=== PATIENT | female | born 1995 | race Caucasian/White ===

== ENCOUNTER 2017-02-20 10:54 | Inpatient (IN) | payer BC ==
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
[2017-02-20] MEDS ORDERED: Lidocaine 1% 50 ML MDV INJECT ONE (19:21)
[2017-02-20] MEDS ORDERED: Sodium Chloride 0.9% 10 ML Syringe FLUSH PRN (19:21)
[2017-02-20] MEDS ORDERED: Nalbuphine 20 MG/1 ML Amp IVPUSH PRN (19:21)
[2017-02-20] MEDS ORDERED: fentaNYL 100 MCG/2 ML SDV EPIDUR PRN (19:26)
[2017-02-20] MEDS ORDERED: Ondansetron 4 MG/2 ML SDV IVPUSH PRN (19:26)
[2017-02-20] MEDS ORDERED: ePHEDrine 50 MG/ML SDV IVPUSH PRN (19:26)
[2017-02-20] MEDS ORDERED: Bupivacaine/fentaNYL/NS 100 ML Bag EPIDUR SCH (19:30)
[2017-02-20] MEDS ORDERED: Oxytocin/Lactated Ringers 10 UNIT/1,000 ML BAG IV SCH ×2 (19:30→22:45)
--- NOTE | 2017-02-20 19:53 | PCM.PREANE ---
Preanesthetic Assessment - Anesthesia/Transfusion/Family Hx Anesthesia History: Prior Anesthesia Reaction Type of Anesthesia Reaction: Excessive Nausea/Vomiting Family History of Anesthesia Reaction: No Transfusion History: No Prior Transfusion(s) Intubation History: Unknown - Review of Systems General: No Symptoms (runny nose) Pulmonary: No Symptoms Cardiovascular: No Symptoms (PIH noted without treatment warranted per patient.) Gastrointestinal: No symptoms Neurological: No Symptoms Other: Reports: Easy Bruising - Physical Assessment NPO Status Date: 02/20/17 NPO Status Time: 16:30 Pulse: 91 O2 Sat by Pulse Oximetry: 99 Respiratory Rate: 20 Blood Pressure: 133/87 Temperature: 37.4 C Height: 1.6 m Weight: 89.868 kg ASA Class: 2 Mental Status: Alert & Oriented x3 Airway Class: Mallampati = 2 Dentition: Reports: Normal Dentition, Caries Thyro-Mental Finger Breadths: 3 Mouth Opening Finger Breadths: 3 ROM/Head Extension: Full Lungs: Clear to auscultation, Normal respiratory effort Cardiovascular: Regular Rate, Regular Rhythm - Allergies Allergies/Adverse Reactions: Allergies Allergy/AdvReac Type Severity Reaction Status Date / Time No Known Allergies Allergy Verified 02/20/17 19:30 - Anesthesia Plan Pre-Op Medication Ordered: None (/) - Acknowledgements Anesthesia Type Planned: Epidural Pt an Appropriate Candidate for the Planned Anesthesia: Yes Alternatives and Risks of Anesthesia Discussed w Pt/Guardian: Yes Pt/Guardian Understands and Agrees with Anesthesia Plan: Yes PreAnesthesia Questionnaire Other Musculoskeletal History: States has low back pain prior to epdural and had chronic low back pain after her first epidural. No radiation down legs. - Past Surgical History HEENT Surgical History: Reports: Tonsillectomy - SUBSTANCE USE Smoking Status *Q: Never Smoker Second Hand Smoke Exposure: Yes Recreational Drug Use History: No - HOME MEDS Home Medications: Home Meds Acetaminophen with Codeine [Tylenol with Codeine #3 Tablet] 1 each PO ASDIRECTED PRN 06/12/16 [History] - CURRENT (IN HOUSE) MEDS Current Meds: Current Medications Ephedrine Sulfate (Ephedrine Sulfate) 5 mg IVPUSH ASDIRECTED PRN PRN Reason: Hypotension Fentanyl (Sublimaze) 100 mcg EPIDUR Q3H PRN PRN Reason: Pain Fentanyl/Bupivacaine HCl (Fentanyl/Bupivacaine/Ns 2 Mcg-0.125% 100 Ml) 100 ml EPIDUR ASDIRECTED CHUCK Lactated Ringer's (Ringers, Lactated) 1,000 mls @ 100 mls/hr IV ASDIRECTED CHUCK Oxytocin/Lactated Ringer's (Pitocin In Lr 10 Units/1,000 Ml) 10 unit in 1,000 mls @ 500 mls/hr IV TITRATE CHUCK PRN Reason: Protocol Nalbuphine HCl (Nubain) 10 mg IVPUSH Q2H PRN PRN Reason: Pain (moderate 4-6) Ondansetron HCl (Zofran) 4 mg IVPUSH ONETIME PRN PRN Reason: Nausea/Vomiting Sodium Chloride (Saline Flush) 10 ml FLUSH ASDIRECTED PRN PRN Reason: Keep Vein Open Discontinued Medications Lidocaine HCl (Xylocaine 1%) 50 ml INJECT ONETIME ONE Stop: 02/20/17 19:22
[2017-02-20] MEDS ORDERED: Diphtheria,Pertussis(Acell),Tetanus Vaccine 0.5 ML SDV inactive IM ONE (20:42)
[2017-02-20] MEDS: Lactated Ringers 1,000 ML IV SCH (22:50)
[2017-02-21] MEDS: Lactated Ringers 1,000 ML IV SCH (01:19)
--- NOTE | 2017-02-21 03:30 | PCM.SN ---
- Free Text/Narrative Note: Ligia is a 21-year-old G5 now P 4-0-1-4 female who presented to L& D in early labor with contractions 6-8 minutes apart. She slowly progressed to complete with the help of some IV pitocin to augment spacing of contractions. At 0302 hours, she delivered a 3630g (8lbs, 0oz), 20 in long, male in STERLING position over an intact perineum. 3-vessel cord was noted. Cord blood obtained. Apgars were 9 and 9 at 1 and 5 minutes respectively. Baby's name is "Salo Robertson". IV Pitocin was again started to help with uterine contraction. Placenta was then delivered at 0311 hours in [place] presentation. It was examined and found to be intact. EBL 100cc. Mom and baby doing well.
[2017-02-21] MEDS ORDERED: Hydrocortisone 1% Crm 30 GM Tube TOP PRN (03:35)
[2017-02-21] MEDS ORDERED: Acetaminophen 325 MG Tab PO PRN (03:59)
[2017-02-21] MEDS ORDERED: Witch Hazel Medicated Pads 100/Jar TOP PRN (03:59)
[2017-02-21] MEDS ORDERED: Benzocaine/Menthol 20%-0.5% Spray 56 GM Canister TOP PRN (03:59)
[2017-02-21] MEDS ORDERED: Lanolin 100% Cream 7 GM Tube TOP PRN (03:59)
[2017-02-21] MEDS: Docusate Sodium 100 MG Cap PO PRN ×2 (04:51→20:05)
[2017-02-21] MEDS: Ibuprofen 600 MG Tab PO PRN ×4 (04:51→20:04)
--- NOTE | 2017-02-21 08:05 | PCM48HPAN ---
Post Anesthesia Note - EVALUATION WITHIN 48HRS OF ANESTHETIC Vital Signs in Normal Range: Yes Patient Participated in Evaluation: Yes Respiratory Function Stable: Yes Airway Patent: Yes Cardiovascular Function Stable: Yes Pain Control Satisfactory: Yes Nausea and Vomiting Control Satisfactory: Yes Mental Status Recovered: Yes - COMMENTS/OBSERVATIONS Free Text/Narrative:: Pt reports doing well, ambulating, taking p.o., denies headache, f/c, n/v, did have some itching throughout the day yesterday. Pt states epidural did not provide anesthesia to perineum, but only to abdomenal area. She states that labor was comfortable, but that delivery was quite painful. otherwise, mother and baby doing well.
[2017-02-21] MEDS: Prenatal Multivitamin with Calcium/Folic Acid/Iron Tab PO SCH (08:35)
[2017-02-21] MEDS ORDERED: Lidocaine 1% PF 2 ML SDV ONE (19:00)
[2017-02-21] MEDS ORDERED: Bupivacaine 0.25% 10 ML SDV ONE (19:00)
[2017-02-22] MEDS: Ibuprofen 600 MG Tab PO PRN ×2 (00:43→08:48)
[2017-02-22 04:12] VITALS: BP 107/62
--- NOTE | 2017-02-22 06:31 | PCM.DCSUM1 ---
Discharge Summary - Discharge Data Discharge Date: 02/22/17 Discharge Disposition: Home, Self-Care 01 Condition: Good - Patient Summary/Data Hospital Course: Ligia is a 21-year-old G5 now P 4-0-1-4 female who presented to L& D in early labor with contractions 6-8 minutes apart. She slowly progressed to complete with the help of some IV pitocin to augment spacing of contractions. At 0302 hours, she delivered a 3630g (8lbs, 0oz), 20 in long, male in STERLING position over an intact perineum. 3-vessel cord was noted. Cord blood obtained. Apgars were 9 and 9 at 1 and 5 minutes respectively. Baby's name is "Salo Robertson". IV Pitocin was again started to help with uterine contraction. Placenta was then delivered at 0311 hours in [place] presentation. It was examined and found to be intact. EBL 100cc. Mom and baby doing well. - Patient Instructions Diet: Usual Diet as Tolerated Activity: As Tolerated, No Strenuous Activities Activity, Other: pelvic rest Driving: May Drive Today Showering/Bathing: May Shower Notify Provider of: Fever, Increased Pain, Swelling and Redness - Discharge Plan Referrals: Erik Story MD [Primary Care Provider] - (6 weeks) - Discharge Summary/Plan Comment DC Time >30 min.: No - Patient Data Vitals - Most Recent: Last Vital Signs Temp 36.6 C 02/22/17 03:56 Pulse 74 02/22/17 03:56 Resp 15 02/22/17 03:56 BP 107/62 02/22/17 03:56 Pulse Ox 94 L 02/22/17 03:56 Weight - Most Recent: 89.868 kg I&O - Last 24 hours: Intake & Output 02/21/17 02/21/17 02/22/17 14:59 22:59 06:59 Intake Total 240 Balance 240 Med Orders - Current: Current Medications Acetaminophen (Tylenol) 650 mg PO Q4H PRN PRN Reason: mild pain or fever Benzocaine/Menthol (Dermoplast Pain Relief [place]anc) 0 gm TOP ASDIRECTED PRN PRN Reason: Perineal Comfort Measure Last Admin: 02/21/17 04:53 Dose: 1 canister Docusate Sodium (Colace) 100 mg PO BID PRN PRN Reason: Constipation Last Admin: 02/21/17 20:05 Dose: 100 mg Emollient Ointment (Lansinoh Hpa) 0 gm TOP ASDIRECTED PRN PRN Reason: Sore Nipples Hydrocortisone (Hydrocortisone 1% Crm) 30 gm TOP ASDIRECTED PRN PRN Reason: Hemorrhoids Last Admin: 02/21/17 16:44 Dose: 1 tube Ibuprofen (Motrin) 600 mg PO Q4H PRN PRN Reason: Mild pain or fever Last Admin: 02/22/17 00:43 Dose: 600 mg Prenat Multivit/[place]/Iron/Folic Ac ( Plus Iron) 1 each PO DAILY CHUCK Last Admin: 02/21/17 08:35 Dose: 1 each Witch Anjelica (Tucks) 1 pad TOP ASDIRECTED PRN PRN Reason: Hemorrhoid pain Last Admin: 02/21/17 04:53 Dose: 1 tub Discontinued Medications Diphtheria/Tetanus/Acell Pertussis (Boostrix) 0.5 ml IM .ONCE ONE Stop: 02/20/17 20:43 Last Admin: 02/21/17 11:05 Dose: Not Given Ephedrine Sulfate (Ephedrine Sulfate) 5 mg IVPUSH ASDIRECTED PRN PRN Reason: Hypotension Fentanyl (Sublimaze) 100 mcg EPIDUR Q3H PRN PRN Reason: Pain Last Admin: 02/21/17 01:24 Dose: 100 mcg Fentanyl/Bupivacaine HCl (Fentanyl/Bupivacaine/Ns 2 Mcg-0.125% 100 Ml) 100 ml EPIDUR ASDIRECTED CHUCK Last Admin: 02/21/17 01:23 Dose: 100 ml Lactated Ringer's (Ringers, Lactated) 1,000 mls @ 100 mls/hr IV ASDIRECTED CHUCK Last Admin: 02/21/17 01:19 Dose: 100 mls/hr Oxytocin/Lactated Ringer's (Pitocin In Lr 10 Units/1,000 Ml) 10 unit in 1,000 mls @ 500 mls/hr IV TITRATE CHUCK PRN Reason: Protocol Oxytocin/Lactated Ringer's (Pitocin In Lr 10 Units/1,000 Ml) 10 unit in 1,000 mls @ 12 mls/hr IV TITRATE CHUCK; 2 MUNITS/MIN PRN Reason: Protocol Last Titration: 02/21/17 05:00 Dose: Infused Lidocaine HCl (Xylocaine 1%) 50 ml INJECT ONETIME ONE Stop: 02/20/17 19:22 Last Admin: 02/21/17 06:37 Dose: Not Given Nalbuphine HCl (Nubain) 10 mg IVPUSH Q2H PRN PRN Reason: Pain (moderate 4-6) Ondansetron HCl (Zofran) 4 mg IVPUSH ONETIME PRN PRN Reason: Nausea/Vomiting Sodium Chloride (Saline Flush) 10 ml FLUSH ASDIRECTED PRN PRN Reason: Keep Vein Open *Q Meaningful Use (DIS) - VTE *Q VTE Criteria *Q: - Stroke *Q Stroke Criteria *Q: - AMI *Q AMI Criteria *Q:
[2017-02-22] MEDS: Docusate Sodium 100 MG Cap PO PRN (08:48)
[2017-02-22] MEDS: Prenatal Multivitamin with Calcium/Folic Acid/Iron Tab PO SCH (08:48)
== END 2017-02-22 09:43 | disposition home or self-care (01) | DRG 560 ==
LOC: JD.OBCHECK 10:54 → JD.OB 10:55 → JD.OBCHECK 19:21 → JD.OB 19:22 → OBSVTOIN 02-21 03:02
PROVIDERS: ADMIT Obstetrics & Gynecology; ATTEND Obstetrics & Gynecology
PROC: 10E0XZZ Delivery of Products of Conception, External Approach (ICD-10-PCS; principal; 2017-02-21)
PROC: 10907ZC Drainage of Amniotic Fluid, Therapeutic from Products of Conception, Via Natural or Artificial Opening (ICD-10-PCS; 2017-02-21)
PROC: 00HU33Z Insertion of Infusion Device into Spinal Canal, Percutaneous Approach (ICD-10-PCS; 2017-02-21)
PROC: 3E0R3CZ (ICD-10-PCS; 2017-02-21)
DX: O80 Encounter for full-term uncomplicated delivery (principal); Z3A.39 39 weeks gestation of pregnancy; Z37.0 Single live birth
CPT/HCPCS: 36415; 85027; 86850; 86900; 86901; A9270-GY; J2590; J3010; J7120

== ENCOUNTER 2017-03-12 09:01 | Day surgery (SDC) | payer BC ==
[~2017-03-12 09:01] MED LIST: Lactated Ringers 1,000 ML IV SCH; Lidocaine 1% 4 ML ONE; Lidocaine 1%/Sod Bicarbonate in NS 8.4% 1 ML Syringe IV PRN; Midazolam 1 MG/ML 2 ML SDV ONE; Propofol 200 MG/20 ML SDV ONE; Sodium Chloride 0.9% 10 ML Syringe FLUSH PRN; ceFAZolin 1 GM Vial ONE; fentaNYL 250 MCG/5 ML SDV ONE
[2017-03-12] MEDS ORDERED: Lidocaine 1% with EPINEPHrine 1:100,000 20 ML MDV ONE (09:08)
[2017-03-12] MEDS ORDERED: Bupivacaine 0.5%/EPINEPHrine 1:200,000 50 ML MDV ONE (09:08)
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
[2017-03-12] MEDS ORDERED: diphenhydrAMINE 50 MG/ML SDV ONE (09:49)
[2017-03-12] MEDS ORDERED: Dexamethasone 4 MG/ML SDV ONE (09:50)
[2017-03-12] MEDS ORDERED: Metoclopramide 10 MG/2 ML SDV IV PRN (09:57)
[2017-03-12] MEDS ORDERED: fentaNYL 100 MCG/2 ML SDV IVPUSH PRN (09:57)
[2017-03-12] MEDS ORDERED: Ondansetron 4 MG/2 ML SDV IVPUSH PRN (09:57)
--- NOTE | 2017-03-12 10:37 | PCM.POSTAN ---
POST ANESTHESIA ASSESSMENT - MENTAL STATUS Mental Status: alert - VITAL SIGNS Pulse Rate: 103 SaO2: 100 Resp Rate: 11 Blood Pressure: 121/79 Temperature: 98.8 F - RESPIRATORY Respiratory Status: respiratory rate WNL, airway patent, O2 saturation stable, supplemental oxygen - CARDIOVASCULAR CV Status: pulse rate WNL, blood pressure stable - GASTROINTESTINAL GI Status: no symptoms - PAIN Pain Score: 0 - POST OP HYDRATION Hydration Status: adequate & stable
--- NOTE | 2017-03-12 10:43 | PCM.OPNOTE ---
- General Post-Op/Procedure Note Date of Surgery/Procedure: 03/12/17 Operative Procedure(s): open umbilical hernia repair with mesh Findings: Incarcerated umbilical hernia with a 1-1/2 cm defect. There was a small piece of infarcted omental fat within a chronically scarred umbilical hernia sac. Pre Op Diagnosis: incarcerated symptomatic umbilical hernia Post-Op Diagnosis: same Anesthesia Technique: General LMA, Local Primary Surgeon: Dev Kyle Pathology: none EBL in mLs: 1 Complications: None Condition: Good Free Text/Narrative:: After adequate LMA general anesthesia was obtained the patient's abdomen was prepped and draped for an open umbilical hernia repair. Local analgesia was given in the skin followed by a supraumbilical incision using a 15 blade. The hernia was dissected away from surrounding scar tissue in the subcutaneous fat and from the overlying umbilical skin. I made an incision in the sac sharply with Metzenbaums scissors at the fascial level. The findings were as described above. Once the omental fat was reduced I measured out a 1-1/2 cm defect. A 4 cm mesh was placed in the defect and this was secured and the defect was closed with interrupted 0 Ethibond suture x4. I replaced the skin to the fascial level with 3-0 Vicryl. The subcutaneous tissues were closed with 3- 0 Vicryl. The skin was closed with 4-0 Vicryl. Steri-Strips and gauze was used for the dressing. There were no procedural complications.
[2017-03-12] MEDS ORDERED: Meperidine PF 50 MG/ML Syringe IVPUSH PRN (11:00)
[2017-03-12] MEDS ORDERED: HYDROmorphone 0.5 MG/0.5 ML Syringe IVPUSH PRN (11:00)
[2017-03-12] MEDS ORDERED: Acetaminophen/Codeine 300-30 MG Tab PO ONE ×2 (12:15→12:32)
[2017-03-12] MEDS ORDERED: Ibuprofen 600 MG Tab PO ONE (13:30)
[2017-03-12 13:58] VITALS: BP 123/77
== END 2017-03-12 13:45 | disposition home or self-care (01) ==
LOC: JD.SDS 09:01
PROVIDERS: ATTEND Surgery
DX: K42.0 Umbilical hernia with obstruction, without gangrene (principal); O26.899 Other specified pregnancy related conditions, unspecified trimester; R10.9 Unspecified abdominal pain; R82.90 Unspecified abnormal findings in urine; M54.2 Cervicalgia; O36.8190 Decreased fetal movements, unspecified trimester, not applicable or unspecified; Z87.828 Personal history of other (healed) physical injury and trauma; O35.9XX0 Maternal care for (suspected) fetal abnormality and damage, unspecified, not applicable or unspecified; Z79.899 Other long term (current) drug therapy; Z98.890 Other specified postprocedural states; F17.200 Nicotine dependence, unspecified, uncomplicated; Z72.0 Tobacco use
CPT/HCPCS: 49587; A9270; J0690; J1100; J1200; J2250; J3010; J7120; 00750; C1781; J2704

== ENCOUNTER 2017-04-30 19:48 | Emergency (ER) | payer BC ==
[2017-04-30 20:02] VITALS: BP 130/91
[2017-04-30 21:01] LABS: ACETAMINOPHEN 16 ug/mL (10-30)
--- NOTE | 2017-04-30 22:42 | EDM.PDOC ---
ED HPI GENERAL MEDICAL PROBLEM - General Chief Complaint: General Stated Complaint: POSSIBLY TOOK TOO MANY MEDS Time Seen by Provider: 04/30/17 19:59 Source of Information: Reports: Patient, Family (), RN Notes Reviewed History Limitations: Reports: No Limitations - History of Present Illness INITIAL COMMENTS - FREE TEXT/NARRATIVE: The patient states that she had a headache, and reached into her vehicle's armrest, grabbing a pill bottle that she thought was Tylenol, around 17:15 today. She states that she took 5 tablets before realizing that what she took was dimenhydrinate (Dramamine) 50 mg. Because she still had a headache, she then subsequently took 5 tablets of acetaminophen 500 mg, followed by her usual dose of Hydroxycut. She subsequently called poison control, who suggested she come to the ED for evaluation. At this time, the patient states that she feels somewhat dizzy and "floating". She saw black earlier. She has some nausea, but has not had any emesis. The patient does not have a PCP. - Related Data Allergies Allergy/AdvReac Type Severity Reaction Status Date / Time No Known Allergies Allergy Verified 04/30/17 19:56 Home Meds: Home Meds Acetaminophen [Tylenol Extra Strength] 1 - 2 tab PO Q6H PRN 03/11/17 [History] Past Medical History Gastrointestinal History: Reports: GERD, Hemorrhoids [employer] History: Reports: , Other (See Below) Other OB/BYN History: amenorrhea; vaginal Hematologic History: Reports: Anemia - Past Surgical History HEENT Surgical History: Reports: Tonsillectomy GI Surgical History: Reports: Hernia, Abdominal (Umbilical) Social & Family History - Family History Family Medical History: Noncontributory - Tobacco Use Smoking Status *Q: Never Smoker Second Hand Smoke Exposure: No - Caffeine Use Caffeine Use: Reports: Soda, Other Other Caffeine Use: hydroxycut Caffeine Use Comment: 2-3 per day - Alcohol Use Alcohol Use History: Yes Days Per Week of Alcohol Use: 1 (hardly ever) Alcohol Use Frequency: Socially - Recreational Drug Use Recreational Drug Use: No - Living Situation & Occupation Living situation: Reports: , with Spouse, with Family (4 kids) Occupation: Unemployed ED ROS GENERAL - Review of Systems Review Of Systems: See Below Constitutional: Reports: No Symptoms HEENT: Reports: No Symptoms Respiratory: Reports: No Symptoms Cardiovascular: Reports: No Symptoms Endocrine: Reports: No Symptoms GI/Abdominal: Reports: No Symptoms : Reports: No Symptoms Musculoskeletal: Reports: No Symptoms Skin: Reports: No Symptoms Neurological: Reports: No Symptoms Psychiatric: Reports: No Symptoms Hematologic/Lymphatic: Reports: No Symptoms Immunologic: Reports: No Symptoms ED EXAM, GENERAL - Physical Exam Exam: See Below Exam Limited By: No Limitations General Appearance: Alert, WD/WN, No Apparent Distress Eye Exam: Bilateral Eye: Normal Inspection Ears: Normal External Exam, Hearing Grossly Normal Nose: Normal Inspection, No Blood Throat/Mouth: Normal Inspection, Normal Lips, Normal Voice, No Airway Compromise Head: Atraumatic, Normocephalic Neck: Normal Inspection, Full Range of Motion Respiratory/Chest: No Respiratory Distress, Lungs Clear, Normal Breath Sounds, No Accessory Muscle Use Cardiovascular: Normal Peripheral Pulses, Regular Rate, Rhythm, No Gallop, No JVD, No Murmur, No Rub Peripheral Pulses: 4+: Radial (L), Radial (R) GI/Abdominal: Normal Bowel Sounds, Soft, Non-Tender, No Organomegaly, No Distention, No Abnormal Bruit, No Mass (Female) Exam: Deferred Rectal (Female) Exam: Deferred Back Exam: Normal Inspection, Full Range of Motion, NT Extremities: Normal Inspection, Normal Range of Motion, No Pedal Edema, Normal Capillary Refill Neurological: Alert, Oriented, Normal Cognition, No Motor/Sensory Deficits Psychiatric: Normal Affect Skin Exam: Warm, Dry, Intact, Normal Color, No Rash Lymphatic: No Adenopathy EKG INTERPRETATION EKG Date: 04/30/17 Time: 20:34 Rhythm: NSR Rate (Beats/Min): 71 Cannon: Normal P-Wave: Present QRS: Normal ST-T: Normal QT: Normal Comparison: NA - No Prior EKG Course - Vital Signs Last Recorded V/S: Last Vital Signs Temp 36.7 C 04/30/17 19:57 Pulse 85 04/30/17 22:49 Resp 18 04/30/17 22:49 BP 130/91 H 04/30/17 19:57 Pulse Ox 98 04/30/17 22:49 - Orders/Labs/Meds Orders: Active Orders 24 hr Category Date Time Status EKG Documentation Completion [RC] STAT Care 04/30/17 20:10 Active Labs: Laboratory Tests 04/30/17 04/30/17 04/30/17 Range/Units 20:11 20:11 20:34 WBC 6.61 (3.98-10.04) K/mm3 RBC 5.14 (3.98-5.22) M/mm3 Hgb 13.9 (11.2-15.7) gm/L Hct 42.2 (34.1-44.9) % MCV 82.1 (79.4-94.8) fl MCH 27.0 (25.6-32.2) pg MCHC 32.9 (32.2-35.5) g/dl RDW Std Deviation 43.5 (36.4-46.3) fL Plt Count 293 (182-369) K/mm3 MPV 10.1 (9.4-12.3) fl Neutrophils % (Manual) 45 (40-60) % Band Neutrophils % 0 (0-10) % Lymphocytes % (Manual) 43 H (20-40) % Atypical Lymphs % 0 % Monocytes % (Manual) 8 (2-10) % Eosinophils % (Manual) 3 (0.7-5.8) % Basophils % (Manual) 1 (0.1-1.2) Platelet Estimate Not Reportable RBC Morph Comment Not Reportable Sodium (136-145) mEq/L Potassium (3.5-5.1) mEq/L Chloride (98-107) mEq/L Carbon Dioxide (21-32) mEq/L Anion Gap (5-15) BUN (7-18) mg/dL Creatinine (0.55-1.02) mg/dL Est Cr Clr Drug Dosing mL/min Estimated GFR (MDRD) (>60) mL/min BUN/Creatinine Ratio (14-18) Glucose (74-106) mg/dL Calcium (8.5-10.1) mg/dL Total Bilirubin (0.2-1.0) mg/dL AST (15-37) U/L ALT (14-59) U/L Alkaline Phosphatase (46-116) U/L Total Protein (6.4-8.2) g/dl Albumin (3.4-5.0) g/dl Globulin gm/dL Albumin/Globulin Ratio (1-2) Urine HCG, Qual Negative (NEGATIVE) Salicylates (2.8-20) mg/dL Urine Opiates Screen Negative (NEGATIVE) Ur Buprenorphine Scrn Negative (NEGATIVE) Ur Oxycodone Screen Negative (NEGATIVE) Urine Methadone Screen Negative (NEGATIVE) Ur Propoxyphene Screen Negative (NEGATIVE) Acetaminophen (10-30) ug/mL Ur Barbiturates Screen Negative (NEGATIVE) Ur Tricyclics Screen Negative (NEGATIVE) Ur Phencyclidine Scrn Negative (NEGATIVE) Ur Amphetamine Screen Negative (NEGATIVE) U Methamphetamines Scrn Negative (NEGATIVE) U Benzodiazepines Scrn Negative (NEGATIVE) U Cocaine Metab Screen Negative (NEGATIVE) U Marijuana (THC) Screen Negative (NEGATIVE) Ethyl Alcohol (0.00) gm% 04/30/17 04/30/17 Range/Units 20:34 20:34 WBC (3.98-10.04) K/mm3 RBC (3.98-5.22) M/mm3 Hgb (11.2-15.7) gm/L Hct (34.1-44.9) % MCV (79.4-94.8) fl MCH (25.6-32.2) pg MCHC (32.2-35.5) g/dl RDW Std Deviation (36.4-46.3) fL Plt Count (182-369) K/mm3 MPV (9.4-12.3) fl Neutrophils % (Manual) (40-60) % Band Neutrophils % (0-10) % Lymphocytes % (Manual) (20-40) % Atypical Lymphs % % Monocytes % (Manual) (2-10) % Eosinophils % (Manual) (0.7-5.8) % Basophils % (Manual) (0.1-1.2) Platelet Estimate RBC Morph Comment Sodium 141 (136-145) mEq/L Potassium 3.2 L (3.5-5.1) mEq/L Chloride 105 (98-107) mEq/L Carbon Dioxide 26 (21-32) mEq/L Anion Gap 13.2 (5-15) BUN 19 H (7-18) mg/dL Creatinine 1.1 H (0.55-1.02) mg/dL Est Cr Clr Drug Dosing 66.92 mL/min Estimated GFR (MDRD) > 60 (>60) mL/min BUN/Creatinine Ratio 17.3 (14-18) Glucose 103 (74-106) mg/dL Calcium 9.9 (8.5-10.1) mg/dL Total Bilirubin 0.4 (0.2-1.0) mg/dL AST 27 (15-37) U/L ALT 73 H (14-59) U/L Alkaline Phosphatase 92 (46-116) U/L Total Protein 8.2 (6.4-8.2) g/dl Albumin 4.4 (3.4-5.0) g/dl Globulin 3.8 gm/dL Albumin/Globulin Ratio 1.2 (1-2) Urine HCG, Qual (NEGATIVE) Salicylates 1.0 L (2.8-20) mg/dL Urine Opiates Screen (NEGATIVE) Ur Buprenorphine Scrn (NEGATIVE) Ur Oxycodone Screen (NEGATIVE) Urine Methadone Screen (NEGATIVE) Ur Propoxyphene Screen (NEGATIVE) Acetaminophen 16 (10-30) ug/mL Ur Barbiturates Screen (NEGATIVE) Ur Tricyclics Screen (NEGATIVE) Ur Phencyclidine Scrn (NEGATIVE) Ur Amphetamine Screen (NEGATIVE) U Methamphetamines Scrn (NEGATIVE) U Benzodiazepines Scrn (NEGATIVE) U Cocaine Metab Screen (NEGATIVE) U Marijuana (THC) Screen (NEGATIVE) Ethyl Alcohol 0.00 (0.00) gm% - Re-Assessments/Exams Free Text/Narrative Re-Assessment/Exam: 04/30/17 22:38 Test results discussed with the patient. Today's workup indicates an elevated acetaminophen level, but nowhere near the toxic level. The remainder of her workup is unremarkable. She may safely be discharged home. I discussed with her the maximum dosage of Tylenol - 5 x 500 mg at one time is too much. Departure - Departure Time of Disposition: 22:39 Disposition: Home, Self-Care 01 Condition: Good Clinical Impression: Accidental medication overdose - Discharge Information Instructions: Accidental Overdose Referrals: PCP,None [Primary Care Provider] - Forms: ED Department Discharge Additional Instructions: You were seen in the emergency room after taking excessive dimenhydrinate and excessive Tylenol. Workup in the ER included blood work, a urine test, a urine drug screen, and an ECG. Your entire workup was unremarkable. Your Tylenol level is elevated, but not to a toxic level. In the future, you should not take more than 1 g of Tylenol per dose, and no more than 4 g over a 24-hour period. Stay adequately hydrated for the next 24 hours. If any other problems, please do not hesitate to return to the ER. - My Orders Last 24 Hours: My Active Orders 04/30/17 20:10 EKG Documentation Completion [RC] STAT - Assessment/Plan Last 24 Hours: My Active Orders 04/30/17 20:10 EKG Documentation Completion [RC] STAT
== END 2017-04-30 22:45 | disposition home or self-care (01) ==
LOC: JD.ED 19:48
DX: T39.1X1A Poisoning by 4-Aminophenol derivatives, accidental (unintentional), initial encounter (principal); K21.9 Gastro-esophageal reflux disease without esophagitis; Z86.2 Personal history of diseases of the blood and blood-forming organs and certain disorders involving the immune mechanism; Z98.890 Other specified postprocedural states
CPT/HCPCS: 36415; 80053; 80306; 81025; 85025; 93005; 99284; G0480; 99283

== ENCOUNTER 2017-12-18 21:08 | Emergency (ER) | payer BC ==
[2017-12-18 21:28] VITALS: BP 144/89
--- NOTE | 2017-12-18 23:03 | EDM.PDOC ---
ED HPI GENERAL MEDICAL PROBLEM - General Chief Complaint: [employer] Problem Stated Complaint: LIGHT BLEEDING 8 WEEKS PREG Time Seen by Provider: 12/18/17 21:42 Source of Information: Reports: Patient, RN Notes Reviewed - History of Present Illness INITIAL COMMENTS - FREE TEXT/NARRATIVE: 22-year-old female comes in with some vaginal spotting and bleeding today. She did start with some vaginal spotting this past morning about 12 hours prior to arrival. That continued very lightly on and off through the day. She then did have a bit heavier spotting or bleeding this evening prompting her visit here to the ED. She is about 8 weeks . Her OB restaurant associate has been concerned because hCG levels have not been rising as fast as they should be. Also on her pelvic ultrasound 3 days ago and also prior ultrasounds have shown an area of hematoma or clot within the uterus. There has not been any prior bleeding or spotting. Not had or having pelvic pain or cramping. Lower Pelvic Pain Score (Numeric/FACES): 2 - Related Data Allergies Allergy/AdvReac Type Severity Reaction Status Date / Time No Known Allergies Allergy Verified 04/30/17 19:56 Home Meds: Home Meds . [No Known Home Meds] 12/18/17 [History] Past Medical History Cardiovascular History: Reports: None Respiratory History: Reports: None Gastrointestinal History: Reports: GERD, Hemorrhoids Other Gastrointestinal History: abdominal pain, umbilical hernia Genitourinary History: Reports: None [employer] History: Reports: , Other (See Below) Other OB/BYN History: amenorrhea; vaginal Other Musculoskeletal History: States has low back pain prior to epdural and had chronic low back pain after her first epidural. No radiation down legs. Neurological History: Reports: Other (See Below) Other Neuro History: head injury Psychiatric History: Reports: None Endocrine/Metabolic History: Reports: Obesity/BMI 30+ Hematologic History: Reports: Anemia Immunologic History: Reports: None Oncologic (Cancer) History: Reports: None Dermatologic History: Reports: None - Infectious Disease History Infectious Disease History: Reports: Shingles - Past Surgical History Head Surgeries/Procedures: Reports: None HEENT Surgical History: Reports: Tonsillectomy GI Surgical History: Reports: Hernia, Abdominal Social & Family History - Family History Family Medical History: Noncontributory - Tobacco Use Smoking Status *Q: Never Smoker Second Hand Smoke Exposure: No - Caffeine Use Caffeine Use: Reports: Soda Other Caffeine Use: hydroxycut Caffeine Use Comment: 2-3 per day - Alcohol Use Days Per Week of Alcohol Use: 1 (hardly ever) - Recreational Drug Use Recreational Drug Use: No - Living Situation & Occupation Living situation: Reports: , with Spouse, with Family (4 kids) Occupation: Unemployed ED ROS GENERAL - Review of Systems Review Of Systems: See Below Constitutional: Denies: Fever, Chills, Diaphoresis HEENT: Reports: No Symptoms Respiratory: Denies: Shortness of Breath, Pleuritic Chest Pain Cardiovascular: Denies: Chest Pain GI/Abdominal: Denies: Abdominal Pain, Nausea, Vomiting : Reports: Other (Intermittent vaginal bleeding and spotting today) Musculoskeletal: Denies: Back Pain Skin: Reports: No Symptoms Neurological: Reports: No Symptoms ED EXAM - Physical Exam Exam: See Below General Appearance: Alert, No Apparent Distress Throat/Mouth: Normal Inspection, Normal Oropharynx Head: Atraumatic Neck: Supple Respiratory/Chest: No Respiratory Distress, Lungs Clear, Normal Breath Sounds Cardiovascular: Regular Rate, Rhythm GI/Abdominal Exam: Soft, Non-Tender. No: Guarding Extremities: Normal Inspection, Normal Range of Motion Neurological: Alert, Oriented, No Motor/Sensory Deficits Skin Exam: Warm, Dry, Normal Color Course - Vital Signs Last Recorded V/S: Last Vital Signs Temp 97.4 F 12/18/17 21:27 Pulse 88 12/18/17 21:27 Resp 20 12/18/17 21:27 BP 144/89 H 12/18/17 21:27 Pulse Ox 100 12/18/17 21:27 - Orders/Labs/Meds Orders: Active Orders 24 hr Category Date Time Status OB Transvaginal [US] Stat Exams 12/18/17 21:51 Taken Labs: Laboratory Tests 12/18/17 Range/Units 22:05 HCG, Quant 1699.0 mIU/mL - Re-Assessments/Exams Free Text/Narrative Re-Assessment/Exam: 12/18/17 23.00 patient states that when she did go to the bathroom a bit ago there was no further bleeding or spotting visible at that time. However due to prior concerns of this being high risk I had ordered pelvic ultrasound and that has been done. The highway maintenance technician just informed me a few minutes ago that observing the area of sac for several minutes not able to observe any heart activity. See Radiology report for further detail. HCG has come back at 1699. Discussed this with patient. Discharge instructions as documented. Departure - Departure Time of Disposition: 23:46 Disposition: Home, Self-Care 01 Condition: Fair Clinical Impression: Threatened - Discharge Information Instructions: Threatened Miscarriage Referrals: Erik Story MD [Primary Care Provider] - Forms: ED Department Discharge Additional Instructions: rest. drink plenty of water to maintain hydration. Call Dr Story's office tomorrow morning after 8:00 for appt. for tomorrow or early next week. Return to ED if soaking more than 1 pad per hour for more than 1 or 2 hr. - My Orders Last 24 Hours: My Active Orders 12/18/17 21:51 OB Transvaginal [US] Stat - Assessment/Plan Last 24 Hours: My Active Orders 12/18/17 21:51 OB Transvaginal [US] Stat
--- NOTE | 2017-12-19 07:20 | US ---
First trimester obstetrical ultrasound: Multiple real-time images were obtained transvaginally. Comparison: Prior study of 12/05/17. Dates: LMP: ? Current ultrasound: [facility] 08/11/18, gestational age 6 weeks 2 days Earliest ultrasound (12/05/17): [facility] 07/31/18, gestational age 7 weeks 6 days Single intrauterine gestation is seen. Embryo is seen. No heart activity is identified during 1 minute observation by the technologist. Maternal ovaries appear within normal limits. Impression: 1. Single intrauterine gestation. Lack of normal growth from previous study. No heart activity is identified. Findings are felt compatible with nonviable . Diagnostic code #3 Agree with preliminary report issued by [email or web address] ([facility] preliminary report dictated on 12/19/17, 12:25 AM Central Time)
== END 2017-12-18 23:58 | disposition home or self-care (01) ==
LOC: JD.ED 21:08
DX: O20.0 Threatened abortion (principal); Z3A.08 8 weeks gestation of pregnancy
CPT/HCPCS: 36415; 76817; 76817-26; 84702; 99283; 99284-25